=== PATIENT | female | born 1985 | race Caucasian/White ===

== ENCOUNTER 2020-10-22 10:32 | Emergency (ER) | payer SELFPAY | END 2020-10-22 11:45 | disposition home or self-care (01) | LOC: MADERS 10:32 | DX: M75.42 Impingement syndrome of left shoulder (principal); F17.210 Nicotine dependence, cigarettes, uncomplicated ==

== ENCOUNTER 2025-03-09 13:44 | Emergency (ER) | payer MEDICAID, OTHER, SELFPAY ==
[2025-03-09] MEDS ORDERED: Dexamethasone 10 MG/ML VIAL ONE (14:33)
== END 2025-03-09 14:50 | disposition home or self-care (01) ==
LOC: MADERS 13:44
DX: L25.5 Unspecified contact dermatitis due to plants, except food (principal); F17.210 Nicotine dependence, cigarettes, uncomplicated
CPT/HCPCS: 96372; 99282; J1100